=== PATIENT | female | born 1960 | race Caucasian/White ===

== ENCOUNTER → 2017-10-27 | Outpatient (CLI) | payer OTHER ==
[~2017-10-27] MED LIST: ALBU90OI INH; ASPI81EC PO; AZIT250; BYDUREON P2 MG/0.65 SQ; CALCIUM 500 +1 EAC2 PO; CHOL10002 PO; CIPR500 PO; ERGO50000 PO; ESTR2 PO; ESTRADIOL; ESTRADIOL1 EAC3 TD; FISH1000 PO; GABA300 PO; HYDHOMSY PO; HYDMOR2 PO; INSDET100 SC; LOSA25 PO; METF500 PO; ONDA8 PO; OXYB5 PO; OXYC5 PO; PREG300 PO; ZOLP10 PO; [UNRECOGNIZED DRUG - OTHER]; [UNRECOGNIZED DRUG - REMARK]
== END | disposition home or self-care (01) ==
LOC: LAB SHORT 10:56 → LAB EV 10:56
DX: R35.0 Frequency of micturition (principal)
CPT/HCPCS: 87077; 87086; 87186

== ENCOUNTER 2022-09-21 08:33 | Day surgery (SDC) | payer OTHER ==
[~2022-09-21] VITALS: Ht 165.1 cm; Wt 91.9 kg
[~2022-09-21 08:33] MED LIST changes: +ATOR10 PO; +Acerola C500 MG PO; +IBUP600 PO; +TRAZ50 PO; +Vitamin B-12100 MCG PO
--- NOTE | 2022-09-21 10:12 | NUR ---
Ambulatory in Day Surgery WITH LIMP. Surgical site prepped with 2% Chlorhexidine cloth wipe. History, Chart, Medications and Allergies reviewed before start of procedure. Lungs clear T/O to Auscultation. Patient confirms NPO status and agrees with scheduled surgery. Pre-Op teaching done. Pt verbalizes understanding.
--- NOTE | 2022-09-21 18:39 | NUR ---
SHIFT SUMMARY PT ARRIVED THIS AFTERNOON, WAS VERY NAUSEATED. PHENERGAN GIVEN & NAPPED. NAUSEA RESOLVED ONCE WOKE UP. SPINAL IS STILL IN EFFECT BUT CAN NOW LIFT R LEG BUT NOT SURGICAL LEG. CAN WIGGLE LLE TOES.
--- NOTE | 2022-09-22 04:18 | NUR ---
SHIFT SUMMARY NO ACUTE CHANGES. PT RESTED WELL T/O SHIFT. DRESSING TO L KNEE REMAINS CDI WITH POLAR PACK IN PLACE. 2 ROXICODONE/TYLENOL/TORADOL FOR PAIN MANAGEMENT. 1 ASSIST WITH FWW + GB TO BRP. EB PO. USES CALL LIGHT APPROPRIATELY.
[2022-09-22 05:44] LABS: BASOPHILS ABSOLUTE AUTO 0.05 K/mm3 (0.00-0.23); BASOPHILS PERCENT AUTO 1 % (0-2); EOSINOPHILS ABSOLUTE AUTO 0.22 K/mm3 (0.00-0.68); EOSINOPHILS PERCENT AUTO 3 % (0-6); Hematocrit 31.8 % (33.0-51.0); Hemoglobin 10.9 g/dL (11.5-16.0); IMMATURE GRAN ABSOLUTE AUTO 0.02 K/mm3 (0.00-0.10); IMMATURE GRAN PERCENT AUTO 0 % (0-1); LYMPHOCYTES ABSOLUTE AUTO 1.75 K/mm3 (0.84-5.20); LYMPHOCYTES PERCENT AUTO 26 % (21-46); MONOCYTES ABSOLUTE AUTO 0.47 K/mm3 (0.16-1.47); MONOCYTES PERCENT AUTO 7 % (4-13); Mean Corpuscular HGB 32.2 pg (26.0-34.0); Mean Corpuscular HGB Conc 34.3 g/dL (31.5-36.5); Mean Corpuscular Volume 94 fL (80-100); Mean Platelet Volume 10.5 fL (9.1-12.4); NEUTROPHILS ABSOLUTE AUTO 4.18 K/mm3 (1.96-9.15); NEUTROPHILS PERCENT AUTO 63 % (41-73); Platelet Count 193 K/mm3 (150-400); RDW Standard Deviation 41.1 fL (35.1-46.3); Red Blood Cell Count 3.39 M/mm3 (3.80-5.20); White Blood Cell Count 6.69 K/mm3 (4.00-11.30)
[2022-09-22 05:53] LABS: Bun/Creatinine Ratio 26.2 (12.0-20.0); Calcium, Blood 8.5 mg/dL (8.5-10.1); Creatinine, Blood 0.73 mg/dL (0.40-1.00); Potassium, Blood 4.1 mmol/L (3.5-5.5)
[2022-09-22] MEDS ORDERED: ASPI81CH PO (09:45)
[2022-09-22] MEDS ORDERED: Percocet 5-3251 EACH PO (09:45)
--- NOTE | 2022-09-22 11:05 | NUR ---
CLEARED THERAPY. WISHES TO WAIT FOR DAUGHTER TO DISCUSS DC INSTRUCTIONS.
--- NOTE | 2022-09-22 13:50 | NUR ---
DISCHARGE PT HAS CLEARED THERAPY. PAIN WELL CONTROLLED. EATING, DRINKING, & VOIDING WELL. DRSGS, SCRIPT, & POLAR PACK SENT w/ PT. ESCORTED OUT VIA W/C. DENIES LINGERING NAUSEA & ATE 100% LUNCH.
== END 2022-09-22 13:45 | disposition home or self-care (01) ==
LOC: ORSCMMR 08:33 → ORD 09:15 → ORSCMMR 10:00 → ORD 10:45 → SURS 14:06 → ORSCMMR 09-22 13:45
PROVIDERS: Orthopaedic Surgery
PROC: 8E0Y0CZ Robotic Assisted Procedure of Lower Extremity, Open Approach (ICD-10-PCS; principal; 2022-09-21 10:00)
PROC: 0SRD0JA Replacement of Left Knee Joint with Synthetic Substitute, Uncemented, Open Approach (ICD-10-PCS; principal; 2022-09-21 10:00)
DX: M17.12 Unilateral primary osteoarthritis, left knee (principal); I10 Essential (primary) hypertension; E11.9 Type 2 diabetes mellitus without complications; M79.7 Fibromyalgia; Z79.84 Long term (current) use of oral hypoglycemic drugs; Z79.899 Other long term (current) drug therapy
CPT/HCPCS: 27447; 20985; S2900; 36415; 73560-LT; 80048; 82947; 85025; 97110; 97116; 97162; A9270; C1776; J0171; J0690; J0735; J1885; J2250; J2405; J2550; J2704; J2765; J2795; J3010; J7120

== ENCOUNTER → 2024-11-14 | Outpatient (CLI) | payer OTHER ==
[~2024-11-14] MED LIST changes: +ASPI81CH PO; +Percocet 5-3251 EACH PO
[2024-11-14 19:36] LABS: Microalb/Creat Ratio UR, Rand Unable to Calculate mg/g (0.000-30.000); Microalbumin, Random Urine <5.000 mg/L (0.000-20.000)
== END | disposition home or self-care (01) ==
LOC: LAB SHORT 17:17 → LAB 17:17
PROVIDERS: Internal Medicine
DX: E11.69 Type 2 diabetes mellitus with other specified complication (principal); E78.2 Mixed hyperlipidemia
CPT/HCPCS: 82043; 82570